=== PATIENT | female | born 1995 | race Caucasian/White ===

== ENCOUNTER → 2020-11-25 | Outpatient (CLI) | payer BC ==
--- NOTE | 2020-11-25 12:22 | RAD ---
EXAM: Abdomen and pelvis CT without intravenous contrast. HISTORY: Flank pain. TECHNIQUE: Computed tomographic images of the abdomen and pelvis were obtained without contrast. Mult iplanar reformatting was performed. *One or more of the following individualized dose reduction techniques were utilized for this examina tion: 1. Automated exposure control. 2. Adjustment of the mA and/or kV according to patient size. 3. Use of iterative reconstruction technique. COMPARISON: None. FINDINGS: Evaluation of the lower thorax demonstrates linear atelectasis within the left lower lobe. There is no infiltrate or suspicious pulmonary nodule. No hepatic lesion is seen. The gallbladder, pa ncreas, spleen and adrenal glands are unremarkable. There is no appendicitis. There is no bowel obstr uction. There is no evidence of nephroureterolithiasis. There is no hydronephrosis. The bladder is un remarkable. The uterus and ovaries are unremarkable. There is trace pelvic free fluid, within physiol ogic limits for a premenopausal female. The aorta is normal in caliber. There is no lymphadenopathy. There is no suspicious osseous lesion. IMPRESSION: No acute abdominal or pelvic finding. Electronically signed by: Nereyda Munguia MD (11/25/2020 12:20 PM) [id number]
== END ==
LOC: CT 11:56
PROVIDERS: ATTEND Nurse Practitioner Family
DX: R53.83 Other fatigue (principal); R10.9 Unspecified abdominal pain
CPT/HCPCS: 74176